=== PATIENT | female | born 1955 | race Caucasian/White ===

== ENCOUNTER → 2016-08-01 | Outpatient (CLI) | payer MEDICARE, OTHER ==
[~2016-08-01] MED LIST: FISH OIL 1,0001 EACH PO; FLEXERIL 10 MG10 MG PO; FOSAMAX70 MG PO; LEVOTHYROXINE112 MCG PO; LISINOPRIL-HCT1 EAC1 PO; MIRALAX PACK 171 PKT PO; NAPROXEN 250 M250 MG PO; NEXIUM40 MG PO; NORCO 7.5-3251 EACH PO
[2016-08-01 10:27] LABS: HEMOGLOBIN 14.5 gm/dl (12.3-15.3); RED BLOOD COUNT 4.9 M/UL (4.00-5.10); WHITE BLOOD COUNT 8.7 K/UL (4.5-11.0)
[2016-08-01 10:53] LABS: BUN/CREATININE RATIO 28 (0-10)
== END ==
LOC: OPSV2 09:30
PROVIDERS: Anesthesiology; Obstetrics & Gynecology
DX: Z01.812 Encounter for preprocedural laboratory examination (principal); Z01.810 Encounter for preprocedural cardiovascular examination; N81.6 Rectocele; Z88.0 Allergy status to penicillin; Z88.3 Allergy status to other anti-infective agents; I10 Essential (primary) hypertension; Z79.899 Other long term (current) drug therapy
CPT/HCPCS: 36415; 80048; 81001; 85025; 93005

== ENCOUNTER 2016-08-09 10:53 | Day surgery (SDC) | payer MEDICARE, OTHER ==
[~2016-08-09] VITALS: Ht 157.5 cm; Wt 71.7 kg
[2016-08-09] MEDS ORDERED: LISINOPRIL-HCT1 EAC1 PO (11:42)
[2016-08-09] MEDS ORDERED: LEVOTHYROXINE112 MCG PO (11:42)
[2016-08-09] MEDS ORDERED: NEXIUM40 MG PO (11:43)
[2016-08-09] MEDS ORDERED: FLEXERIL 10 MG10 MG PO (11:44)
[2016-08-09] MEDS ORDERED: FOSAMAX70 MG PO (11:44)
[2016-08-09] MEDS ORDERED: FISH OIL 1,0001 EACH PO (11:44)
[2016-08-10 06:57] LABS: HEMOGLOBIN 11.8 gm/dl (12.3-15.3)
[2016-08-10] MEDS ORDERED: NORCO 7.5-3251 EACH PO (16:34)
[2016-08-10] MEDS ORDERED: NAPROXEN 250 M250 MG PO (16:36)
[2016-08-10] MEDS ORDERED: MIRALAX PACK 171 PKT PO (16:38)
== END 2016-08-10 16:20 | disposition home or self-care (01) ==
LOC: OR 10:53 → M/S 18:40 → OR 08-10 16:20
PROVIDERS: Obstetrics & Gynecology
PROC: 0JQC0ZZ Repair Pelvic Region Subcutaneous Tissue and Fascia, Open Approach (ICD-10-PCS; 2016-08-09)
PROC: 0USGXZZ Reposition Vagina, External Approach (ICD-10-PCS; 2016-08-09)
PROC: 0TSD0ZZ Reposition Urethra, Open Approach (ICD-10-PCS; principal; 2016-08-09 15:15)
DX: N39.3 Stress incontinence (female) (male) (principal); N81.10 Cystocele, unspecified; N81.82 Incompetence or weakening of pubocervical tissue; I10 Essential (primary) hypertension; K21.9 Gastro-esophageal reflux disease without esophagitis; E89.0 Postprocedural hypothyroidism; D64.9 Anemia, unspecified; E66.9 Obesity, unspecified; Z88.0 Allergy status to penicillin; Z88.1 Allergy status to other antibiotic agents; Z98.51 Tubal ligation status; Z90.710 Acquired absence of both cervix and uterus; Z79.899 Other long term (current) drug therapy
CPT/HCPCS: 36415; 85014; 85018; C1769; C1771; J1100; J1580; J1885; J2250; J2405; J2710; J2795; J3010; J7120

== ENCOUNTER 2020-03-19 15:29 | Inpatient (IN) | payer MEDICARE, OTHER ==
[~2020-03-19] VITALS: Ht 157.5 cm; Wt 65.8 kg
[~2020-03-19 15:29] MED LIST changes: +FLOVENT 220.1 GM/INH INH; +IBUPROFEN800 MG PO; -LEVOTHYROXINE112 MCG PO; +LEVOTHYROXINE125 MC1 PO; +NASONEX17 GM; +PROAIR DIGIHAL90 MCG INH; +TESSALON PERLE100 MG PO; +ZITHROMAX250 MG PO; +ZOFRAN 4 MG TAB4 MG PO
[2020-03-19 17:39] LABS: HEMOGLOBIN 12.6 gm/dl (12.3-15.3); RED BLOOD COUNT 4.36 M/UL (4.00-5.10); WHITE BLOOD COUNT 14.4 K/UL (4.5-11.0)
[2020-03-19 17:59] LABS: BUN/CREATININE RATIO 29 (0-10)
[2020-03-20] MEDS ORDERED: WELLBUTRIN SR150 M1 PO (01:18)
[2020-03-20] MEDS ORDERED: POTASSIUM CHLO10 MEQ PO (01:18)
[2020-03-20] MEDS ORDERED: AMLODIPINE BES2.5 MG PO (01:18)
[2020-03-20 04:53] LABS: BUN/CREATININE RATIO 28 (0-10)
[2020-03-20 05:16] LABS: RED BLOOD COUNT 3.89 M/UL (4.00-5.10); WHITE BLOOD COUNT 9.2 K/UL (4.5-11.0)
[2020-03-21 08:55] LABS: HEMOGLOBIN 11.3 gm/dl (12.3-15.3); RED BLOOD COUNT 3.94 M/UL (4.00-5.10)
[2020-03-21 08:56] LABS: WHITE BLOOD COUNT 13.4 K/UL (4.5-11.0)
[2020-03-21 09:35] LABS: BUN/CREATININE RATIO 33 (0-10)
[2020-03-22 06:11] LABS: RED BLOOD COUNT 3.81 M/UL (4.00-5.10); WHITE BLOOD COUNT 13.3 K/UL (4.5-11.0)
[2020-03-22 06:37] LABS: BUN/CREATININE RATIO 28 (0-10)
[2020-03-23 05:51] LABS: HEMOGLOBIN 11.3 gm/dl (12.3-15.3); RED BLOOD COUNT 3.96 M/UL (4.00-5.10); WHITE BLOOD COUNT 12.6 K/UL (4.5-11.0)
[2020-03-23 06:11] LABS: BUN/CREATININE RATIO 18 (0-10)
[2020-03-24 06:02] LABS: HEMOGLOBIN 11.4 gm/dl (12.3-15.3); RED BLOOD COUNT 4.05 M/UL (4.00-5.10); WHITE BLOOD COUNT 15.8 K/UL (4.5-11.0)
[2020-03-24 06:10] LABS: BUN/CREATININE RATIO 21 (0-10)
--- NOTE | 2020-03-24 13:07 | NUR ---
1305: SP02 CHECKED ON ROOM AIR NOTED AT 97% PER CASE MANAGEMENT REQUEST.
[2020-03-24] MEDS ORDERED: DECADRON6 MG PO (13:37)
[2020-03-24] MEDS ORDERED: IPRAT-ALBUT 0.5-3 ML INH (13:40)
== END 2020-03-24 15:28 | disposition home or self-care (01) | DRG 177 ==
LOC: ER1 15:29 → CDU 22:38 → MED SURG 4 22:38
PROVIDERS: Internal Medicine; Physician Assistant; ADMIT Internal Medicine
PROC: XW033E5 Introduction of Remdesivir Anti-infective into Peripheral Vein, Percutaneous Approach, New Technology Group 5 (ICD-10-PCS; principal; 2020-03-20)
PROC: 8E0ZXY6 Isolation (ICD-10-PCS; 2020-03-20)
DX: U07.1 COVID-19 (principal); J12.89 Other viral pneumonia; J96.01 Acute respiratory failure with hypoxia; J15.9 Unspecified bacterial pneumonia; I10 Essential (primary) hypertension; E03.9 Hypothyroidism, unspecified; Z90.710 Acquired absence of both cervix and uterus
CPT/HCPCS: 36415; 36600; 71045; 80048; 80053; 81001; 82550; 82553; 82728; 82803; 83540; 83550; 83615; 83874; 84484; 85025; 85379; 86140; 90471; 93005; 96365; 96366; 96372; 96375; 96376; 99285; G0378; J0456; J1100; J1650; J2405; J2543; J7030; J7050; Q9967